=== PATIENT | male | born 1995 | race Caucasian/White ===

== ENCOUNTER → 2018-01-02 | Emergency (ER) | payer OTHER ==
[~2018-01-02] VITALS: Ht 170.2 cm; Wt 95.3 kg
[~2018-01-02] MED LIST: LITIO
== END | disposition home or self-care (01) ==
LOC: ER 16:21
DX: G89.18 Other acute postprocedural pain (principal); R10.84 Generalized abdominal pain; K29.60 Other gastritis without bleeding; Z98.890 Other specified postprocedural states

== ENCOUNTER 2022-01-10 07:21 | Emergency (ER) | payer OTHER ==
[~2022-01-10] VITALS: Ht 170.2 cm; Wt 108.9 kg
== END 2022-01-10 15:20 | disposition home or self-care (01) ==
LOC: ER 07:21
DX: R10.84 Generalized abdominal pain (principal); N28.89 Other specified disorders of kidney and ureter; Z91.041 Radiographic dye allergy status; Z91.013 Allergy to seafood

== ENCOUNTER 2025-07-05 13:47 | Emergency (ER) | payer OTHER ==
[~2025-07-05] VITALS: Ht 170.2 cm; Wt 104.3 kg
[2025-07-05] MEDS ORDERED: ONDANSETRON HCL 2 MG/ML VIAL IV STA (15:06)
[2025-07-05] MEDS ORDERED: FAMOTIDINE/PF 20 MG/2 ML VIAL IV STA (15:06)
[2025-07-05] MEDS ORDERED: 0.9 % SODIUM CHLORIDE 1,000 ML IV STA (15:06)
[2025-07-05] MEDS ORDERED: ONDANSETRON HCL 2 MG/ML VIAL ONE (15:15)
[2025-07-05] MEDS ORDERED: FAMOTIDINE/PF 20 MG/2 ML VIAL ONE (15:16)
[2025-07-05 16:13] LABS: BASO % 0.6 % (0.1-1.2); EOS # 0.27 (0.04-0.54); EOS % 5.3 % (0.7-7.0); LYMPH # 1.77 (1.18-3.74); LYMPH % 35.0 % (19.3-53.1); MEAN PLATELET VOLUME 11.60 fl (9.4-12.4); MONO # 0.51 (0.24-0.82); MONO % 10.1 % (4.7-12.5); NEUT # 2.46 (1.56-6.13); NEUT % 48.8 % (34.0-71.1); RED CELL DISTRIBUTION WIDTH 12.4 % (11.6-14.4)
[2025-07-05 16:35] LABS: INR 1.01
[2025-07-05 16:44] LABS: ALT/SGPT 29.0 U/L (12-78); AST/SGOT 15.0 U/L (15-37); BILIRUBIN TOTAL 0.64 mg/dL (0.3-1.2); BUN CREA RATIO 17.0 (7.0-25.0); CREATININE SERUM 0.9 mg/dL (0.70-1.30); GFR 98.42; GLOBULINA 3.6 G/DL (2.4-3.5); GLUCOSE FASTING 81.0 mg/dL (65-100); OSMOLALITY SERUM 283.0 MOSM/KG (275-295)
[2025-07-05 16:59] LABS: URINE APPEARANCE Clear; URINE BILIRRUBIN Negative (NEGATIVE); URINE BLOOD Negative; URINE COLOR Yellow; URINE GLUCOSE Negative (NEGATIVE); URINE KETONE Trace (NEGATIVE); URINE LEUKOCYTE Negative; URINE NITRATE Negative; URINE PROTEIN Trace (NEGATIVE); URINE UROBILINOGEN 0.2 E.U./dl
[2025-07-05 17:03] LABS: URINE BACTERIA 8.3 uL (0.0-1933); URINE WBC 2.1 uL (0.0-23.2)
[2025-07-05 17:06] LABS: URINE CAST 0.43 uL (0.0-1.40); URINE EPITHELIAL CELLS 1.3 uL (0.0-38.8); URINE RBC 0.7 uL (0.0-20.8)
[2025-07-05] MEDS ORDERED: PROTONIX40 MG PO (19:55)
[2025-07-05] MEDS ORDERED: PEPCID AC20 MG PO (19:55)
[2025-07-05] MEDS ORDERED: INTESTINEX680 M1 PO (19:55)
== END 2025-07-05 21:27 | disposition home or self-care (01) ==
LOC: ER 13:48
PROVIDERS: Physician Assistant Medical
DX: K52.89 Other specified noninfective gastroenteritis and colitis (principal); K59.00 Constipation, unspecified; Z88.8 Allergy status to other drugs, medicaments and biological substances; Z88.6 Allergy status to analgesic agent; Z91.013 Allergy to seafood
CPT/HCPCS: 36415; 74176; 96365; 99283; J2405; J3490; J7030